=== PATIENT | male | born 1965 | race Caucasian/White ===

== ENCOUNTER → 2020-06-14 | Outpatient (CLI) | payer BC | END | disposition home or self-care (01) | LOC: ROC 06-07 10:51 | PROVIDERS: ATTEND Radiology Radiation Oncology | DX: I61.5 Nontraumatic intracerebral hemorrhage, intraventricular (principal) | CPT/HCPCS: 99214; G0463 ==

== ENCOUNTER → 2020-07-05 | Outpatient (CLI) | payer MEDICAID ==
[~2020-07-05] MED LIST: OMNIPAQUE 350 MG/ML, 100ML BOTTLE ONE
== END | disposition home or self-care (01) ==
LOC: CFH 15:33
PROVIDERS: ATTEND Radiology Radiation Oncology
DX: Q28.2 Arteriovenous malformation of cerebral vessels (principal)
CPT/HCPCS: 70496; Q9967

== ENCOUNTER 2021-03-15 09:47 | Outpatient (CLI) | payer MEDICAID | END 2021-03-15 23:59 | disposition home or self-care (01) | LOC: ROC 09:47 | PROVIDERS: ATTEND Radiology Radiation Oncology | DX: Z08 Encounter for follow-up examination after completed treatment for malignant neoplasm (principal); Q28.2 Arteriovenous malformation of cerebral vessels | CPT/HCPCS: 99213; G0463 ==